=== PATIENT | male | born 1960 | race Caucasian/White ===

== ENCOUNTER → 2017-03-20 | Outpatient (CLI) | payer OTHER, MEDICARE ==
[~2017-03-20] MED LIST: ACET-1311 PO; DIPH-437 PO; LISI-461 PO; LRT5 PO; NAPR1TAB9 PO; OPANA PO
== END | disposition home or self-care (01) ==
LOC: C.LABSPEC 16:00
PROVIDERS: ATTEND Physician Assistant
DX: L73.9 Follicular disorder, unspecified (principal)